=== PATIENT | female | born 1985 | race Two or more races ===

== ENCOUNTER → 2017-07-16 | Outpatient (CLI) | payer OTHER ==
--- NOTE | 2017-07-16 16:33 | RAD ---
EXAM: Hysterosalpingogram. HISTORY: 31-year-old female presents with infertility. The patient reports a prior hysterosalpingogram performed at an outside facility demonstrating blocked fallopian tubes. TECHNIQUE: The risks of the procedure were discussed with the patient and written and verbal consent was obtained. A timeout was performed. The patient was placed in a supine position on the fluoroscopy table and a speculum was inserted into the vagina. The cervix was identified and cleansed with Betadine. A catheter was advanced into the uterus and water subtle contrast was injected. A him coder image and multiple spot fluoroscopic images were obtained with the patient in different obliquities. A total of 7 images were obtained for total fluoroscopy time of 0.8 minutes. COMPARISON: None. FINDINGS: The uterus is anteverted. There is a normal uterine configuration. There is contrast opacification of both fallopian tubes. There is suggestion of trace delayed spillage of contrast into the peritoneal cavity from the left fallopian tube. No contrast spillage is seen from the right fallopian tube. IMPRESSION: 1. No spillage of contrast from the right fallopian tube and suggestion of trace delayed spillage of contrast from the left fallopian tube. 2. Anteverted uterus with a normal configuration. Electronically signed by: Jayashree Palma MD (07/16/2017 4:30 PM) [id number]
== END | disposition home or self-care (01) ==
LOC: RAD 12:59
DX: N97.1 Female infertility of tubal origin (principal); N85.4 Malposition of uterus
CPT/HCPCS: 58340; 74740